=== PATIENT | male | born 1960 ===

== ENCOUNTER 2020-12-17 14:06 | Emergency (ER) | payer MEDICARE ==
--- NOTE | 2020-12-17 16:20 | Emergency Department Report ---
ED Psych HPI - General Chief Complaint: Medical Clearance Stated Complaint: PSYCHIATRIC ASSESSMENT Time Seen by Provider: 12/17/20 15:57 Source: patient Mode of arrival: Ambulatory - History of Present Illness Initial Comments: Patient presents with a nervous breakdown. He states that he just does not know what to do. He is alone. He has a sister that will occasionally help. He is not suicidal homicidal. He states he just had a nervous breakdown. He states that the adults and the kids in the neighborhood just keep picking at him. He is having problems controlling symptoms and coping. He did not know what to do and did not know where to turn. He came here. He is on medication. That does not seem to be helping. He denies hearing voices. He is not feeling anything crawling on him. - Related Data Home Medications Medication Instructions Recorded Confirmed Last Taken Benztropine [Cogentin] 0.5 mg PO 12/17/20 Unknown Divalproex [Thom Haywood] 100 mg PO QAM 12/17/20 12/17/20 Unknown Divalproex [Thom Haywood] 500 mg PO HS 12/17/20 12/17/20 Unknown Naproxen Sodium [All Day Pain 440 mg PO Q8H PRN 12/17/20 12/17/20 Unknown Relief] risperiDONE [RisperDAL] 3 mg PO HS 12/17/20 12/17/20 Unknown traZODone [Desyrel] 50 mg PO QHS 12/17/20 12/17/20 Unknown Allergies Allergy/AdvReac Type Severity Reaction Status Date / Time No Known Allergies Allergy Unverified 12/17/20 14:49 ED Review of Systems ROS: Stated complaint: PSYCHIATRIC ASSESSMENT Other details as noted in HPI Comment: All other systems reviewed and negative Constitutional: denies: fever Eyes: denies: vision change ENT: denies: ear pain Respiratory: denies: cough Cardiovascular: denies: chest pain Endocrine: denies: unexplained weight loss Gastrointestinal: denies: abdominal pain Genitourinary: denies: dysuria Musculoskeletal: denies: back pain Skin: denies: rash Neurological: denies: headache Psychiatric: as per HPI Hematological/Lymphatic: denies: easy bruising ED Past Medical Hx - Past Medical History Hx Arthritis: Yes Hx Psychiatric Treatment: Yes (BIPOLAR/ DEPRESSED) Additional medical history: 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 - Surgical History Additional Surgical History: RETINA X 2 - Family History Family history: other (Mental health disease) - Social History Smoking Status: Current Every Day Smoker (We discussed tobacco cessation x3 minutes) Substance Use Type: None - Medications Home Medications: Home Medications Medication Instructions Recorded Confirmed Last Taken Type Benztropine [Cogentin] 0.5 mg PO 12/17/[address] [Depakote Dr] 100 mg PO QAM 12/17/20 12/17/[address] [Depakote Dr] 500 mg PO HS 12/17/20 12/17/20 Unknown History Naproxen Sodium [All Day Pain 440 mg PO Q8H PRN 12/17/20 12/17/20 Unknown History Relief] risperiDONE [RisperDAL] 3 mg PO HS 12/17/20 12/17/20 Unknown History traZODone [Desyrel] 50 mg PO QHS 12/17/20 12/17/20 Unknown History ED Physical Exam - General Limitations: No Limitations, Other (Pulse ox is noted and normal) General appearance: alert, in no apparent distress - Head Head exam: Present: atraumatic, normocephalic, normal inspection - Eye Eye exam: Present: normal appearance, EOMI. Absent: scleral icterus - ENT ENT exam: Present: normal exam, normal orophraynx, mucous membranes moist - Neck Neck exam: Present: normal inspection. Absent: meningismus - Respiratory Respiratory exam: Present: normal lung sounds bilaterally. Absent: respiratory distress - Cardiovascular Cardiovascular Exam: Present: regular rate, normal rhythm - GI/Abdominal GI/Abdominal exam: Present: soft. Absent: distended - Extremities Exam Extremities exam: Present: normal capillary refill - Back Exam Back exam: Absent: CVA tenderness (R), CVA tenderness (L) - Neurological Exam Neurological exam: Present: alert, oriented X3, CN II-XII intact, normal gait. Absent: motor sensory deficit - Psychiatric Psychiatric exam: Present: anxious - Skin Skin exam: Present: warm, dry ED Course Vital Signs 12/17/20 12/17/20 12/17/20 14:52 15:52 15:55 Temperature 98.7 F 97.9 F 97.9 F Pulse Rate 76 63 63 Respiratory 18 20 20 Rate Blood Pressure 144/89 Blood Pressure 175/67 144/89 [Right] O2 Sat by Pulse 99 98 98 Oximetry 12/17/20 16:15 Temperature Pulse Rate Respiratory Rate Blood Pressure Blood Pressure [Right] O2 Sat by Pulse 98 Oximetry - Reevaluation(s) Reevaluation #1: 12/17/20 16:20 IV and labs ordered. Psychiatric evaluation was ordered. Reevaluation #2: 12/17/20 17:23 Drug screen was noted. Behavioral health evaluation is pending. Reevaluation #3: 12/17/20 18:00 Mental health welfare analyst has requested a 1013. This was completed. The patient did not verbalize suicidal or homicidal thoughts. He did not seem to respond to extraneous stimuli. He was not delusional. ED Medical Decision Making - Lab Data Result diagrams: 12/17/20 17:43 12/17/20 17:43 - Medical Decision Making Patient presents for psychiatric evaluation. He has been medically cleared. Patient was seen by psychiatric services and was deemed that he needed to be admitted. Patient to me was not suicidal or homicidal. He was not delusional. He felt as though he was just having a "nervous breakdown." Regardless, he is medically cleared. He is going to be admitted per psychiatric services Critical Care Time: No Critical care attestation.: If time is entered above; I have spent that time in minutes in the direct care of this critically ill patient, excluding procedure time. ED Disposition Clinical Impression: Anxiety Disposition: 30 STILL A PATIENT Is pt being admited?: No Condition: Stable Referrals: PRIMARY CARE, [Primary Care Provider] - 3-5 Days
[2020-12-17 16:49] LABS: Amphetamine Screen,Urine Negative; Benzodiazepines Screen,Urine Negative; Cannabinoid Screen,Urine Negative; Cocaine Screen,Urine Negative; Methadone Screen,Urine Negative; Opiate Screen,Urine Negative
[2020-12-17 18:00] LABS: Hematocrit 42.7 % (35.5-45.6); Hemoglobin 14.6 gm/dl (11.8-15.2); Mean Corpuscular HGB Conc 34 % (32-34); Mean Corpuscular Volume 98 fl (84-94); Platelet Count 216 K/mm3 (140-440); Red Blood Count 4.36 M/mm3 (3.65-5.03); Red Cell Distribution Width 13.2 % (13.2-15.2)
[2020-12-17 18:12] LABS: Blood Urea Nitrogen 9 mg/dL (9-20); Calcium 8.6 mg/dL (8.4-10.2); Hemolysis Index 13
[2020-12-17 18:23] LABS: BUN/Creatinine Ratio 13
--- NOTE | 2020-12-18 10:38 | Consultation ---
History of Present Illness - Reason for Consult Consult date: 12/18/20 Reason for consult: mental health evaluation - History of Present Psychiatric Illness ED Note:Patient presents with a nervous breakdown. He states that he just does not know what to do. He is alone. He has a sister that will occasionally help. He is not suicidal homicidal. He states he just had a nervous breakdown. He states that the adults and the kids in the neighborhood just keep picking at him. He is having problems controlling symptoms and coping. He did not know what to do and did not know where to turn. He came here. He is on medication. That does not seem to be helping. He denies hearing voices. He is not feeling anything crawling on him. Donavon Conti is a 60 year old male with history of Schizophrenia, Bipolar disorder who presents to the ED with nervous breakdown. In my interview with the patient, the patient is paranoid. He reports that he had a nervous breakdown, stating that he s having issues with his neighbours " They are taking pictures of me and posting it in social media; they are harassing me. " The patient denies any current suicidal/homicidal ideation but admits having auditory/visual hallucinations. PAST PSYCHIATRIC HISTORY: Diagnoses:Schizophrenia, Bipolar Suicide attempts or Self-harm behavior: Denies Prior psychiatric hospitalizations: Yes Substance Abuse history: Denies Previous psychiatric medications tried: Risperidone, Seroquel, Depakote, Traz odone Outpatient treatment: Yes PAST MEDICAL HISTORY: None reported or document Family Psychiatric History: None reported or documented SOCIAL HISTORY Marital Status: Single Living Arrangements: Lives alone Employment Status: unemployed Access to guns/weapons: Denies Education: 10th grade History of Abuse: Denies Legal History: unknown REVIEW OF SYSTEMS Constitutional: Negative for weight loss ENT: Negative for stridor Respiratory: Negative for cough or hemoptysis All other systems reviewed and are negative MENTAL STATUS EXAMINATION General Appearance and Behavior: Age appropriate, good hygiene, wearing appropriate clothes. calm, cooperative Cooperation: Cooperative Psychomotor Behavior: Psychomotor normal Mood: Paranoid Affect and affective range: Congruent with stated mood Thought Process: goal directed Thought Content: Not suicidal Speech: normal tone and pace Suicidal Ideation:Denies Homicidal Ideation: Denies Hallucinations: Auditory/visual Delusions: Paranoid Impulse Control: Normal Insight and Judgment: Limited Memory: Limited Attention: attentive Orientation: a/o x 3 Assessment (1)Schizophrenia Disorder-F20.9 Current Visit: Yes Status: Acute Treatment Plan Continue 1013 Continue previously prescribed medications and follow up with outpatient psychiatry in 7 to 10 days upon discharge. The patient to comply with previously prescribed medications Risks, benefits and alternatives of medications discussed with the patient, questions answered and consent obtained from patient. PSYCHOTHERAPY: Supportive psychotherapy provided MEDICAL: Per primary team DELIRIUM PRECAUTIONS: Please re-orient patient frequently, keep lights on during the day, and minimize benzodiazepines and opiates as these medications could worsen patient's confusion. BROOM MAN: Defer to primary DISPOSITION: Recommend acute psychiatric inpatient treatment The sitter to give the patient resources and safety plan The patient to comply with treatment regimen and abstain from all illicit drug use. FOLLOW-UP: Will follow. Case staffed with Dr. Meraz Mental Status Exam Medications and Allergies Allergies Allergy/AdvReac Type Severity Reaction Status Date / Time No Known Allergies Allergy Unverified 12/17/20 14:49 Home Medications Medication Instructions Recorded Confirmed Last Taken Type Benztropine [Cogentin] 0.5 mg PO 12/17/[address] [Thom Haywood] 100 mg PO QAM 12/17/20 12/17/[address] [Thom Haywood] 500 mg PO HS 12/17/20 12/17/20 Unknown History Naproxen Sodium [All Day Pain 440 mg PO Q8H PRN 12/17/20 12/17/20 Unknown History Relief] risperiDONE [RisperDAL] 3 mg PO HS 12/17/20 12/17/20 Unknown History traZODone [Desyrel] 50 mg PO QHS 12/17/20 12/17/20 Unknown History Mental Status Exam - Vital signs Last Vital Signs Temp 97.9 F 12/18/20 07:58 Pulse 66 12/18/20 07:58 Resp 20 12/18/20 07:58 BP 146/83 12/18/20 07:58 Pulse Ox 98 12/18/20 07:58 Results Result Diagrams: 12/17/20 17:43 12/17/20 17:43 Abnormal lab results 12/17/20 12/17/20 Range/Units 17:43 17:43 MCV 98 H (84-94) fl MCH 34 H (28-32) pg Sodium 132 L (137-145) mmol/L Chloride 96.5 L (98-107) mmol/L Creatinine 0.7 L (0.8-1.3) mg/dL Glucose 105 H (75-100) mg/dL All other labs normal.
[2020-12-18] MEDS ORDERED: diphenhydrAMINE 25 MG CAP PO PRN (10:39)
[2020-12-18] MEDS ORDERED: ONDANSETRON 4 MG ODT TAB PO PRN (10:39)
[2020-12-18] MEDS ORDERED: LORazepam 2 MG/ML VIAL IM PRN (10:39)
--- NOTE | 2020-12-18 10:48 | Event Note ---
Date: 12/18/20 The patient was evaluated in the emergency department for symptoms described in the history of present illness. He/she was evaluated in the context of the global COVID-19 pandemic, which necessitated consideration that the patient might be at risk for infection with the virus that causes COVID-19. Institutional protocols and algorithms that pertain to the evaluation of patients at risk for COVID-19 are in a state of rapid change based on information released by regulatory bodies including the CDC and federal and state organizations. These policies and algorithms were followed during the patient's care in the emergency department. Please note that these policies, procedures and recommendations changed on a rapid basis. Laboratory studies, vital signs, nursing documentation, ER documentation, and psychiatric documentation are reviewed and appreciated. Nursing team reports no acute events this morning or concerns. The patient is awake and ambulating and does not appear to be in any acute distress. The patient was deemed medically suitable for psychiatric disposition and placement during his initial ER evaluation. The patient continues to remain medically suitable for psychiatric placement and disposition. He is currently pending psychiatric placement. The patient is asking for his Combigan and Lumigan ophthalmic drops his chronic ocular glaucoma. He states he has chronic poor vision in his right eye. He is not having ocular pain at this time. He states his medications get delivered. He states that he typically gets his medications through [facility]. Contacted our pharmacy, and discussed this with our pharmacist, Mr. Escudero. He has made appropriate recommendations, we can continue Combigan, and zuleta bstitute for latanoprost. My pharmacist advises me of the appropriate dosing, and frequency of administration. We will therefore order as per his recommendations. Have also requested that nursing team reconcile the patient's home medications. Discussed this with the patient. He is agreeable. Of note, the patient is not homicidal or suicidal. He is not experiencing hallucinations. He wants to go to [facility]. He states he is having a nervous breakdown. The patient remains medically suitable for psychiatric placement and disposition at this time. Vital Signs 12/17/20 12/17/20 12/17/20 14:52 15:52 15:55 Temperature 98.7 F 97.9 F 97.9 F Pulse Rate 76 63 63 Respiratory 18 20 20 Rate Blood Pressure 144/89 Blood Pressure 175/67 144/89 [Right] O2 Sat by Pulse 99 98 98 Oximetry 12/17/20 12/17/2012/18/21 16:15 20:48 02:42 Temperature 98.4 F 97.7 F Pulse Rate 69 67 Respiratory 18 18 Rate Blood Pressure Blood Pressure 142/82 154/97 [Right] O2 Sat by Pulse 98 99 98 Oximetry 12/18/20 12/18/20 03:47 07:58 Temperature 97.9 F Pulse Rate 66 Respiratory 20 Rate Blood Pressure Blood Pressure 146/83 [Right] O2 Sat by Pulse 98 98 Oximetry Lab Results 12/17/20 12/17/20 12/17/20 Range/Units 16:26 17:43 17:43 WBC 5.8 (4.5-11.0) K/mm3 RBC 4.36 (3.65-5.03) M/mm3 Hgb 14.6 (11.8-15.2) gm/dl Hct 42.7 (35.5-45.6) % MCV 98 H (84-94) fl MCH 34 H (28-32) pg MCHC 34 (32-34) % RDW 13.2 (13.2-15.2) % Plt Count 216 (140-440) K/mm3 Sodium 132 L (137-145) mmol/L Potassium 3.8 (3.6-5.0) mmol/L Chloride 96.5 L (98-107) mmol/L Carbon Dioxide 26 (22-30) mmol/L Anion Gap 13 mmol/L BUN 9 (9-20) mg/dL Creatinine 0.7 L (0.8-1.3) mg/dL Estimated GFR > 60 ml/min BUN/Creatinine Ratio 13 % Glucose 105 H (75-100) mg/dL Calcium 8.6 (8.4-10.2) mg/dL Urine Opiates Screen Negative Urine Methadone Screen Negative Ur Barbiturates Screen Negative Ur Phencyclidine Scrn Negative Ur Amphetamines Screen Negative U Benzodiazepines Scrn Negative Urine Cocaine Screen Negative U Marijuana (THC) Screen Negative Drugs of Abuse Note Disclamer Plasma/Serum Alcohol (0-0.07) % 12/17/20 Range/Units 17:43 WBC (4.5-11.0) K/mm3 RBC (3.65-5.03) M/mm3 Hgb (11.8-15.2) gm/dl Hct (35.5-45.6) % MCV (84-94) fl MCH (28-32) pg MCHC (32-34) % RDW (13.2-15.2) % Plt Count (140-440) K/mm3 Sodium (137-145) mmol/L Potassium (3.6-5.0) mmol/L Chloride (98-107) mmol/L Carbon Dioxide (22-30) mmol/L Anion Gap mmol/L BUN (9-20) mg/dL Creatinine (0.8-1.3) mg/dL Estimated GFR ml/min BUN/Creatinine Ratio % Glucose (75-100) mg/dL Calcium (8.4-10.2) mg/dL Urine Opiates Screen Urine Methadone Screen Ur Barbiturates Screen Ur Phencyclidine Scrn Ur Amphetamines Screen U Benzodiazepines Scrn Urine Cocaine Screen U Marijuana (THC) Screen Drugs of Abuse Note Plasma/Serum Alcohol < 0.01 (0-0.07) %
[2020-12-18] MEDS: BENZTROPINE 0.5 MG TAB PO SCH ×2 (11:26→21:45)
[2020-12-18 13:35] LABS: Amorphous Crystals,Urine Few; Bilirubin,Urine NEG (Negative); Blood,Urine NEG (Negative); Color,Urine Yellow (Yellow); Mucus,Urine FEW /HPF; Protein,Urine <15 mg/dL mg/dL (Negative); WBC,Urine < 1.0 /HPF (0.0-6.0)
[2020-12-18] MEDS ORDERED: LATANOPROST 0.005% OPHTH SOLN 2.5 ML OU SCH (18:00)
[2020-12-18] MEDS ORDERED: traZODone 50 MG TAB PO SCH (22:00)
[2020-12-18] MEDS ORDERED: DIVALPROEX DR 500 MG TAB PO SCH (22:00)
[2020-12-18] MEDS ORDERED: COMBIGAN 0.2-0.5% OPHTH SOLN OU SCH (22:00)
[2020-12-18] MEDS ORDERED: risperiDONE 3 MG TAB PO SCH (22:00)
[2020-12-18 22:32] VITALS: BP 169/83
[2020-12-19] MEDS ORDERED: DIVALPROEX DR 125 MG TAB PO SCH (10:00)
== END 2020-12-19 00:34 ==
LOC: ED 14:06
DX: F41.9 Anxiety disorder, unspecified (principal); M19.90 Unspecified osteoarthritis, unspecified site; F31.9 Bipolar disorder, unspecified; Z98.890 Other specified postprocedural states; F17.200 Nicotine dependence, unspecified, uncomplicated; Z20.822 Contact with and (suspected) exposure to COVID-19; Z79.899 Other long term (current) drug therapy
CPT/HCPCS: 36415; 80048; 80307; 81001; 85027; 99285; U0003; 80320; G0480